=== PATIENT | female | born 1940 | race Caucasian/White ===

== ENCOUNTER 2017-09-12 13:49 | Inpatient (IN) | payer OTHER ==
[~2017-09-12] VITALS: Ht 167.6 cm; Wt 74.4 kg
--- NOTE | ~2017-09-12 | EKG ---
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 : 1940 Requested By: Venus Marcelo Order Number: [id number] MD: Corky Younger Measurements Intervals [place] Rate: 97 P: 82 [place]: 157 QRS: 21 QRSD: 103 T: 47 QT: 368 QTc: 468 Interpretive Statements Sinus rhythm Low voltage, extremity and precordial leads Minimal ST elevation, inferior leads Compared to ECG 03/14/2016 16:58:53 Low QRS voltage now present ST (T wave) deviation now present Electronically Signed On 09-12-2017 15:07:13 [employer]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
[~2017-09-12 13:49] MED LIST: ADULT LOW DOSE81 MG PO; DIABETA; DOXYCYCLINE 10100 MG PO; FLEXERIL PO; HYDROXYZINE HCL25 M1 PO; LANTUS SUBQ; LISINOPRIL10 MG PO; MEDROLDOSEPACK PO; NORCO 5-325 TA1 EACH PO; NORVASC 5 MG TAB5 MG PO; NOVOLOG100 UNIT/1 SUBQ
[2017-09-12 13:50] VITALS: BP 177/80
[2017-09-12 14:15] LABS: ABSOLUTE NEUTROPHILS 4.5 thou/uL (1.4-8.2); BASOPHILS 1.1 % (0.0-2.0); EOSINOPHILS 3.4 % (0.0-3.0); HEMATOCRIT 42.3 % (37.0-47.0); HEMOGLOBIN 14.4 gm/dL (12.0-15.0); LYMPHOCYTES 35.6 % (24.0-44.0); MCHC 34.1 g/dL (28.0-37.0); MONOCYTES 7.6 % (1.0-8.0); PLATELET COUNT 315 thou/uL (150-400); POLYS 52.3 % (36.0-66.0); RBC 4.98 mil/uL (4.20-5.00); RDW 13.4 % (10.5-14.5); WBC 8.6 thou/uL (4.0-11.0)
[2017-09-12 14:18] LABS: CALCIUM 9.3 mg/dL (8.5-10.1); CREATININE 0.8 mg/dL (0.6-1.0); POTASSIUM 4.2 mmol/L (3.5-5.1)
[2017-09-12 14:52] LABS: URINE BILIRUBIN NEGATIVE (Negative); URINE BLOOD NEGATIVE (Negative); URINE CLARITY CLEAR; URINE COLOR YELLOW; URINE GLUCOSE-RANDOM* 3+ (Negative); URINE KETONES NEGATIVE (Negative); URINE NITRITE-REFLEX NEGATIVE (Negative); URINE PROTEIN (DIPSTICK) NEGATIVE (Negative); URINE SPECIFIC GRAVITY 1.015 (1.005-1.035); URINE UROBILINOGEN 0.2 E.U./dl (0.2-1.0)
[2017-09-12 14:54] LABS: URINE LEUKOCYTES-REFLEX TRACE (Negative)
[2017-09-12 15:22] LABS: APTT 22.9 Seconds (24.5-32.8); PROTIME 9.9 Seconds (9.3-11.4)
[2017-09-12 17:00] VITALS: BP 160/71
[2017-09-12 17:33] VITALS: BP 160/71
[2017-09-12 20:00] VITALS: BP 152/82
[2017-09-13 04:08] VITALS: BP 132/69
[2017-09-13 05:33] LABS: HEMATOCRIT 40.8 % (37.0-47.0); HEMOGLOBIN 13.5 gm/dL (12.0-15.0); MCH 28.2 pg (26.0-34.0); MCHC 33.2 g/dL (28.0-37.0); MCV 84.8 fL (80.0-100.0); RBC 4.81 mil/uL (4.20-5.00); RDW 13.1 % (10.5-14.5); WBC 6.6 thou/uL (4.0-11.0)
[2017-09-13 05:42] LABS: CALCIUM 9.1 mg/dL (8.5-10.1); CREATININE 0.6 mg/dL (0.6-1.0); POTASSIUM 3.7 mmol/L (3.5-5.1)
[2017-09-13 08:05] VITALS: BP 128/78
[2017-09-13] MEDS ORDERED: ASPIR 8181 MG PO (14:26)
[2017-09-13 14:27] VITALS: BP 128/78
== END 2017-09-13 14:46 | disposition home or self-care (01) | DRG 69 ==
LOC: ER 13:49 → 4E 15:15 → EROBS 15:15 → 4E 17:36 → ENTRNSPT 09-13 14:38 → EDTRNSPTSTS 09-13 14:43 → 4E 09-13 14:46
PROVIDERS: Emergency Medicine; Hospitalist
DX: G45.9 Transient cerebral ischemic attack, unspecified (principal); I10 Essential (primary) hypertension; E78.5 Hyperlipidemia, unspecified; E11.9 Type 2 diabetes mellitus without complications; Z79.899 Other long term (current) drug therapy; Z90.49 Acquired absence of other specified parts of digestive tract; Z79.4 Long term (current) use of insulin; Z86.73 Personal history of transient ischemic attack (TIA), and cerebral infarction without residual deficits
CPT/HCPCS: 10183

== ENCOUNTER 2018-02-20 20:43 | Emergency (ER) | payer OTHER ==
[~2018-02-20] VITALS: Ht 167.6 cm; Wt 79.4 kg
[~2018-02-20 20:43] MED LIST changes: +ASPIR 8181 MG PO
[2018-02-20] MEDS ORDERED: GABAPENTIN 100100 MG PO (22:38)
[2018-02-20] MEDS ORDERED: HYDROCODONE-AP1 EAC6 PO (22:53)
== END 2018-02-20 23:10 | disposition home or self-care (01) ==
LOC: ER 20:43
DX: M25.511 Pain in right shoulder (principal); M54.12 Radiculopathy, cervical region; I10 Essential (primary) hypertension; E11.9 Type 2 diabetes mellitus without complications; Z90.49 Acquired absence of other specified parts of digestive tract

== ENCOUNTER 2018-12-16 18:03 | Emergency (ER) | payer OTHER ==
[~2018-12-16] VITALS: Ht 167.6 cm; Wt 77.1 kg
[~2018-12-16 18:03] MED LIST changes: +GABAPENTIN 100100 MG PO; +HYDROCODONE-AP1 EAC6 PO
[2018-12-16 18:37] VITALS: BP 147/78
[2018-12-16] MEDS ORDERED: NOVOLIN 70100 UNIT/5 SUBQ (18:43)
[2018-12-16] MEDS ORDERED: NOVOLOG100 UNIT/1 SUBQ (18:44)
[2018-12-16] MEDS ORDERED: MOBIC7.5 MG PO (19:41)
== END 2018-12-16 20:20 | disposition home or self-care (01) ==
LOC: ER 18:03
DX: S92.301A Fracture of unspecified metatarsal bone(s), right foot, initial encounter for closed fracture (principal); I10 Essential (primary) hypertension; E11.9 Type 2 diabetes mellitus without complications; Z86.73 Personal history of transient ischemic attack (TIA), and cerebral infarction without residual deficits; Z79.4 Long term (current) use of insulin; Z90.49 Acquired absence of other specified parts of digestive tract; W01.0XXA Fall on same level from slipping, tripping and stumbling without subsequent striking against object, initial encounter; Y93.89 Activity, other specified; Y92.89 Other specified places as the place of occurrence of the external cause; Y99.8 Other external cause status